=== PATIENT | male | born 1955 | race Caucasian/White ===

== ENCOUNTER → 2023-10-19 | Outpatient (CLI) | payer MEDICARE, OTHER ==
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
[2023-10-19 14:39] VITALS: BP 125/69; PULSE 87; RESP 15; TEMP 98.1
== END ==
LOC: PNWHC3 13:31
PROVIDERS: ATTEND Specialist
DX: M51.36 Other intervertebral disc degeneration, lumbar region (principal); G82.50 Quadriplegia, unspecified; M12.50 Traumatic arthropathy, unspecified site
CPT/HCPCS: 99211

== ENCOUNTER → 2023-12-07 | Outpatient (CLI) | payer MEDICARE, OTHER ==
--- NOTE | 2023-12-07 16:30 | XR ---
EXAMINATION TYPE: XR lumbar spine 2 or 3V DATE OF EXAM: 12/07/2023 COMPARISON: None HISTORY: Disc degenerative changes of chronic low back pain TECHNIQUE: Three-view lumbar spine FINDINGS: There are 5 lumbar-type vertebral bodies. The pedicles are intact. Some posterior disc spac e narrowing is present L4-5 diffuse disc space narrowing is present L5-S1. Vertebral body alignment i s preserved. Vertebral body heights are preserved. Some spondylosis is present L3-L5. IMPRESSION: 1. Degenerative disc changes L5-S1 and posteriorly L4-5.
[2023-12-08 07:03] LABS: Serum Amphetamine Negative; Serum Barbiturates Negative; Serum Benzodiazepine Negative; Serum Cocaine Negative; Serum Methadone Negative; Serum Opiates Negative; Serum Phencyclidine Negative; Serum Propoxyphene Negative; Serum THC (Cannabis) Negative
== END | disposition home or self-care (01) ==
LOC: LABWHC1 15:32
PROVIDERS: ATTEND Physician Assistant Medical
DX: Z02.83 Encounter for blood-alcohol and blood-drug test (principal); G89.29 Other chronic pain; M47.816 Spondylosis without myelopathy or radiculopathy, lumbar region; M51.37 Other intervertebral disc degeneration, lumbosacral region; M51.36 Other intervertebral disc degeneration, lumbar region
CPT/HCPCS: 36415; 72100; 80307

== ENCOUNTER → 2023-12-15 | Outpatient (CLI) | payer MEDICARE, OTHER ==
[2023-12-15 13:51] VITALS: BP 103/67; PULSE 84; RESP 14
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
[2023-12-16 07:11] LABS: Serum Amphetamine Negative; Serum Barbiturates Negative; Serum Benzodiazepine Negative; Serum Cocaine Negative; Serum Methadone Negative; Serum Opiates Negative; Serum Phencyclidine Negative; Serum Propoxyphene Negative; Serum THC (Cannabis) Negative
== END ==
LOC: PNWHC3 12:51
PROVIDERS: ATTEND Anesthesiology
DX: M12.50 Traumatic arthropathy, unspecified site (principal); M51.36 Other intervertebral disc degeneration, lumbar region; G82.50 Quadriplegia, unspecified; Z02.83 Encounter for blood-alcohol and blood-drug test
CPT/HCPCS: 80307; G0463; 99211

== ENCOUNTER → 2023-12-28 | Outpatient (CLI) | payer MEDICARE, OTHER ==
--- NOTE | 2023-12-29 11:45 | MR ---
EXAMINATION TYPE: MR lumbar spine wo con DATE OF EXAM: 12/28/2023 4:48 PM CLINICAL INDICATION:Male, 68 years old with history of M51.36 INTERVERTEBRAL DISC DEGENERATION, LUMBA R RE; PHH, Severe back pain for several years COMPARISON: None TECHNIQUE: Multi planar, multi sequence imaging was performed utilizing: T1-weighted, T2-weighted, a nd turbo inversion recovery imaging of the lumbar spine. IV Contrast: cc . (None if empty) FINDINGS: Alignment: The lumbar vertebral bodies have preserved heights and alignment. Cord: The conus medullaris and the distal spinal cord appear unremarkable with regards to their signa l intensity and morphology. Bones/Discs: Multilevel disc degeneration changes with osteophyte formation, disc space narrowing, Sc hmorl's nodes, and facet joint arthropathy. No abnormal inversion recovery signal to suggest bony juan ma. Multilevel disc desiccation is present. High T1/high T2 signal within the L3 vertebral body most compatible with vertebral body hemangioma. Other heterogenous bone marrow with focal areas of fatty m arrow. T12-L1: No evidence of significant spinal canal stenosis or neural foraminal stenosis. L1-L2: No evidence of significant spinal canal stenosis or neural foraminal stenosis. L2-L3: No evidence of significant spinal canal stenosis or neural foraminal stenosis. L3-L4: No evidence of significant spinal canal stenosis or neural foraminal stenosis. L4-L5: Disc bulge and facet joint arthropathy result in mild spinal canal and mild bilateral neural f oraminal stenosis. L5-S1: The disc is rounded posterior morphology without significant spinal canal stenosis. Facet join t arthropathy with moderate bilateral neural foraminal stenosis. No significant spinal canal or neural foraminal stenosis in the remainder of the visualized levels. Other findings: There is a perineural cysts at the level of S2-S3 measuring up to 10 x 7 mm IMPRESSION: 1. No definitive evidence of disc herniation or significant spinal canal stenosis. 2. Severe degeneration disc degeneration with associated osteoarthritic changes no evidence for sign ificant spinal canal stenosis.
== END | disposition home or self-care (01) ==
LOC: RADMRIMAIN 15:40
PROVIDERS: ATTEND Specialist
DX: M51.36 Other intervertebral disc degeneration, lumbar region (principal); G89.4 Chronic pain syndrome; M48.061 Spinal stenosis, lumbar region without neurogenic claudication
CPT/HCPCS: 72148

== ENCOUNTER → 2024-02-09 | Outpatient (CLI) | payer MEDICARE, OTHER ==
[2024-02-09 14:02] VITALS: BP 155/110; PULSE 87; RESP 16; TEMP 98.3
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
== END ==
LOC: PNWHC3 13:09
PROVIDERS: ATTEND Specialist
DX: G82.50 Quadriplegia, unspecified (principal); M51.36 Other intervertebral disc degeneration, lumbar region; M12.58 Traumatic arthropathy, other specified site
CPT/HCPCS: 99211